=== PATIENT | female | born 1985 | race Two or more races ===

== ENCOUNTER 2022-05-23 16:23 | Emergency (ER) | payer OTHER ==
[~2022-05-23] VITALS: Ht 167.6 cm; Wt 63.5 kg
== END 2022-05-23 21:49 | disposition home or self-care (01) ==
LOC: ER 16:23
DX: O20.0 Threatened abortion (principal); O26.851 Spotting complicating pregnancy, first trimester; Z3A.01 Less than 8 weeks gestation of pregnancy; R10.2 Pelvic and perineal pain; F41.8 Other specified anxiety disorders; Z88.2 Allergy status to sulfonamides; Z91.041 Radiographic dye allergy status; Z91.013 Allergy to seafood

== ENCOUNTER 2022-05-31 15:28 | Emergency (ER) | payer OTHER ==
[~2022-05-31] VITALS: Ht 167.6 cm; Wt 63.5 kg
[2022-05-31] MEDS ORDERED: CEPHALEXIN500 MG PO (19:50)
== END 2022-05-31 20:49 | disposition home or self-care (01) ==
LOC: ER 15:28
DX: O23.41 Unspecified infection of urinary tract in pregnancy, first trimester (principal); N39.0 Urinary tract infection, site not specified; Z3A.01 Less than 8 weeks gestation of pregnancy; Z85.41 Personal history of malignant neoplasm of cervix uteri; Z88.2 Allergy status to sulfonamides; Z91.041 Radiographic dye allergy status; Z91.013 Allergy to seafood